=== PATIENT | female | born 1955 | race Caucasian/White ===

== ENCOUNTER → 2023-05-31 07:02 | Outpatient (REF) | payer MEDICARE, SELFPAY ==
[2023-05-31 09:34] LABS: % Basophils 1.3 % (0-2); % Eosinophils 6.2 % (0-6); % Immature Granulocytes 0.3 % (0-0.5); % Lymphocytes 36.2 % (20.5-51.1); % Monocytes 11.3 % (1.7-9.3); % Neutrophils 44.7 % (42.2-75.2); Absolute Basophils 0.1 10^3/uL (0-0.2); Absolute Eosinophils 0.2 10^3/uL (0-0.7); Absolute Lymphocytes 1.4 10^3/uL (1.2-3.4); Absolute Monocytes 0.4 10^3/uL (0.1-0.6); Absolute Neutrophils 1.8 10^3/uL (1.4-6.5); Hematocrit 43.2 % (37.0-47.0); Hemoglobin 14.9 g/dL (12.0-16.0); Mean Corp Hgb Conc. 34.5 g/dL (33.0-37.0); Mean Corpuscular Hgb 30.5 pg (27.0-31.0); Mean Corpuscular Volume 88.5 fL (81.0-99.0); Nucleated Red Blood Cells % 0 %; Platelet Count 286 10^3/uL (130-400); Red Blood Cell Count 4.88 10^6/uL (4.20-5.40); Red Cell Dist. Width 13.2 % (11.5-14.5); White Blood Cell Count 3.9 10^3/uL (4.8-10.8)
[2023-05-31 09:42] LABS: ALT (SGPT) 30 U/L (0-35); AST (SGOT) 32 U/L (14-36); Albumin 4.1 g/dl (3.5-5.0); Alkaline Phosphatase 99 U/L (38-126); Blood Urea Nitrogen 23 mg/dl (7-17); Calcium 9.6 mg/dl (8.4-10.2); Carbon Dioxide 25 mmol/L (22-30); Chloride 106 mmol/L (98-107); Glucose 110 mg/dl (70-99); HDL Cholesterol 94 mg/dl; LDH 250 U/L (120-246); LDL Cholesterol, Calculated 126 mg/dl; Potassium 4.3 mmol/L (3.5-5.1); Sodium 136 mmol/L (135-145); Total Bilirubin 0.8 mg/dl (0.2-1.3); Total Cholesterol 234 mg/dl (50-199); Total Protein 6.7 g/dl (6.3-8.2); Triglyceride 70 mg/dl (10-149); Very Low Density Lipoprotein 14 mg/dl (0-30); eGFR > 60.00
[2023-05-31 10:00] LABS: Free T4 1.96 ng/dl (0.78-2.19)
[2023-05-31 10:03] LABS: Vitamin D, 25-OH*** 73.2 ng/mL (30-80)
[2023-05-31 10:15] LABS: TSH 0.04 uIU/ml (0.47-4.68)
[2023-05-31 12:51] LABS: Glycohemoglobin (HgbA1c) 7.7 % (4.0-5.6)
[2023-06-01 09:20] LABS: Intact PTH 37.8 pg/ml (13.6-85.8)
[2023-06-01 18:20] LABS: Number Of Markers 26 markers; Source Blood
[2023-06-01 21:32] LABS: Total T3 (Sendout) 79 ng/dL (80-200)
[2023-06-01 22:43] LABS: CTx 402 pg/mL
== END ==
LOC: HWLAB 07:02
PROVIDERS: ATTENDING PHYSICIAN Internal Medicine Endocrinology, Diabetes & Metabolism; FAMILY PHYSICIAN Family Medicine
DX: R59.1 Generalized enlarged lymph nodes (principal); E78.00 Pure hypercholesterolemia, unspecified; M85.9 Disorder of bone density and structure, unspecified; E10.65 Type 1 diabetes mellitus with hyperglycemia; E55.9 Vitamin D deficiency, unspecified; E06.3 Autoimmune thyroiditis
CPT/HCPCS: 36415; 80053; 80061; 82306; 82523; 83036; 83615; 83970; 84439; 84443; 84480; 85025

== ENCOUNTER → 2023-11-25 07:01 | Outpatient (REF) | payer MEDICARE, SELFPAY ==
[2023-11-25 10:15] LABS: ALT (SGPT) 21 U/L (0-35); AST (SGOT) 27 U/L (14-36); Calcium 9.6 mg/dl (8.4-10.2); HDL Cholesterol 90 mg/dl; LDL Cholesterol, Calculated 135 mg/dl; Total Cholesterol 241 mg/dl (50-199); Triglyceride 80 mg/dl (10-149); Very Low Density Lipoprotein 16 mg/dl (0-30)
[2023-11-25 10:26] LABS: Vitamin D, 25-OH*** 49.9 ng/mL (30-80)
[2023-11-27 04:32] LABS: CTx 289 pg/mL
[2023-11-27 13:24] LABS: Intact PTH 40.5 pg/ml (13.6-85.8)
== END ==
LOC: HWLAB 07:01
PROVIDERS: ATTENDING PHYSICIAN Family Medicine
DX: E78.00 Pure hypercholesterolemia, unspecified (principal); M85.9 Disorder of bone density and structure, unspecified
CPT/HCPCS: 36415; 80061; 82306; 82523; 83970; 84450; 84460

== ENCOUNTER → 2024-03-14 06:40 | Outpatient (REF) | payer MEDICARE, SELFPAY ==
[2024-03-14 09:50] LABS: ALT (SGPT) 27 U/L (0-35); AST (SGOT) 29 U/L (14-36); Albumin 4.2 g/dl (3.5-5.0); Alkaline Phosphatase 107 U/L (38-126); Blood Urea Nitrogen 35 mg/dl (7-17); Calcium 9.4 mg/dl (8.4-10.2); Carbon Dioxide 29 mmol/L (22-30); Chloride 100 mmol/L (98-107); Glucose 210 mg/dl (70-99); HDL Cholesterol 109 mg/dl; LDL Cholesterol, Calculated 162 mg/dl; Potassium 4.5 mmol/L (3.5-5.1); Sodium 139 mmol/L (135-145); Total Bilirubin 0.6 mg/dl (0.2-1.3); Total Cholesterol 291 mg/dl (50-199); Total Protein 6.9 g/dl (6.3-8.2); Triglyceride 102 mg/dl (10-149); Very Low Density Lipoprotein 20 mg/dl (0-30); eGFR > 60.00
[2024-03-14 10:18] LABS: TSH 0.32 uIU/ml (0.47-4.68)
== END ==
LOC: MRI 06:40
PROVIDERS: ATTENDING PHYSICIAN Specialist; FAMILY PHYSICIAN Family Medicine; REFERRING PHYSICIAN Internal Medicine Endocrinology, Diabetes & Metabolism
DX: M25.551 Pain in right hip (principal); E10.65 Type 1 diabetes mellitus with hyperglycemia; E06.3 Autoimmune thyroiditis; E78.2 Mixed hyperlipidemia
CPT/HCPCS: 36415; 80053; 80061; 83036; 84443

== ENCOUNTER → 2024-03-21 18:48 | Outpatient (REF) | payer MEDICARE, SELFPAY | LOC: MRI 18:48 | PROVIDERS: ATTENDING PHYSICIAN Specialist | DX: M25.551 Pain in right hip (principal) | CPT/HCPCS: 73721 ==

== ENCOUNTER → 2024-07-10 06:08 | Outpatient (REF) | payer MEDICARE, SELFPAY ==
[2024-07-10 09:48] LABS: ALT (SGPT) 29 U/L (0-35); AST (SGOT) 28 U/L (14-36); Albumin 4.4 g/dl (3.5-5.0); Blood Urea Nitrogen 22 mg/dl (7-17); Carbon Dioxide 26 mmol/L (22-30); Chloride 105 mmol/L (98-107); Glucose 129 mg/dl (70-99); HDL Cholesterol 97 mg/dl; LDL Cholesterol, Calculated 130 mg/dl; Phosphorus 3.8 mg/dl (2.5-4.5); Potassium 4.3 mmol/L (3.5-5.1); Sodium 141 mmol/L (135-145); Total Cholesterol 243 mg/dl (50-199); Triglyceride 83 mg/dl (10-149); Very Low Density Lipoprotein 16 mg/dl (0-30); eGFR > 60.00
== END ==
LOC: HWLAB 06:08
PROVIDERS: ATTENDING PHYSICIAN Family Medicine
DX: E78.00 Pure hypercholesterolemia, unspecified (principal); M85.9 Disorder of bone density and structure, unspecified
CPT/HCPCS: 36415; 80061; 80069; 84450; 84460

== ENCOUNTER → 2024-07-11 10:27 | Outpatient (REF) | payer MEDICARE, SELFPAY | LOC: HWRAD 10:27 | PROVIDERS: ATTENDING PHYSICIAN Family Medicine | DX: M85.9 Disorder of bone density and structure, unspecified (principal); M81.0 Age-related osteoporosis without current pathological fracture | CPT/HCPCS: 77080 ==

== ENCOUNTER → 2024-07-26 07:09 | Outpatient (REF) | payer MEDICARE, SELFPAY | LOC: HWRAD 07:09 | PROVIDERS: ATTENDING PHYSICIAN Family Medicine | DX: R05.9 Cough, unspecified (principal) | CPT/HCPCS: 71046 ==

== ENCOUNTER → 2024-12-29 07:46 | Outpatient (REF) | payer MEDICARE, SELFPAY ==
[2024-12-29 10:01] LABS: Glycohemoglobin (HgbA1c) 7.2 % (4.0-5.6)
[2024-12-29 11:52] LABS: ALT (SGPT) 27 U/L (0-35); AST (SGOT) 27 U/L (14-36); Albumin 4.3 g/dl (3.5-5.0); Alkaline Phosphatase 101 U/L (38-126); Blood Urea Nitrogen 30 mg/dl (7-17); Calcium 9.8 mg/dl (8.4-10.2); Carbon Dioxide 28 mmol/L (22-30); Chloride 105 mmol/L (98-107); Glucose 145 mg/dl (70-99); HDL Cholesterol 97 mg/dl; LDL Cholesterol, Calculated 150 mg/dl; Potassium 5.1 mmol/L (3.5-5.1); Sodium 137 mmol/L (135-145); Total Protein 7.1 g/dl (6.3-8.2); Very Low Density Lipoprotein 17 mg/dl (0-30); eGFR > 60.00
[2024-12-29 12:29] LABS: TSH < 0.02 uIU/ml (0.47-4.68)
[2024-12-29 14:43] LABS: Microalbumin, Random Urine 1.0 mg/dl (0.6-1.7)
[2024-12-29 14:49] LABS: Microalb - Urine Creatinine 116.500 mg/dl
[2024-12-31 19:20] LABS: Glu-6-Phosphate Dehydrogenase 10.8 U/g Hb (9.9-16.6)
== END ==
LOC: HWLAB 07:46
PROVIDERS: ATTENDING PHYSICIAN Internal Medicine Endocrinology, Diabetes & Metabolism; FAMILY PHYSICIAN Family Medicine
DX: E10.65 Type 1 diabetes mellitus with hyperglycemia (principal); E06.3 Autoimmune thyroiditis; E78.2 Mixed hyperlipidemia; G93.32 Myalgic encephalomyelitis/chronic fatigue syndrome
CPT/HCPCS: 36415; 80053; 80061; 82043; 82570; 82955; 83036; 84443

== ENCOUNTER → 2025-03-21 07:02 | Outpatient (REF) | payer MEDICARE, SELFPAY ==
[2025-03-21 08:41] LABS: Glycohemoglobin (HgbA1c) 7.1 % (4.0-5.9)
[2025-03-21 08:49] LABS: ALT (SGPT) 22 U/L (0-35); AST (SGOT) 26 U/L (14-36); Albumin 4.4 g/dl (3.5-5.0); Alkaline Phosphatase 134 U/L (38-126); Blood Urea Nitrogen 23 mg/dl (7-17); Calcium 9.8 mg/dl (8.4-10.2); Carbon Dioxide 28 mmol/L (22-30); Chloride 104 mmol/L (98-107); Glucose 106 mg/dl (70-99); Potassium 5.4 mmol/L (3.5-5.1); Sodium 138 mmol/L (135-145); Total Protein 7.0 g/dl (6.3-8.2); eGFR > 60.00
[2025-03-21 09:01] LABS: TSH 0.10 uIU/ml (0.47-4.68)
== END ==
LOC: REG 07:02
PROVIDERS: ATTENDING PHYSICIAN Internal Medicine Endocrinology, Diabetes & Metabolism; FAMILY PHYSICIAN Family Medicine
DX: E10.65 Type 1 diabetes mellitus with hyperglycemia (principal); E06.3 Autoimmune thyroiditis
CPT/HCPCS: 36415; 80053; 83036; 84443